=== PATIENT | female | born 1995 | race Caucasian/White ===

== ENCOUNTER 2019-04-02 11:39 | Emergency (ER) | payer MEDICAID ==
[~2019-04-02] VITALS: Ht 177.8 cm; Wt 70.3 kg
[2019-04-02 12:09] VITALS: BP_SYST 123
--- NOTE | 2019-04-02 13:07 | NUR ---
Patient to ER bed 04 to gown for evaluation. Side rails up.
--- NOTE | 2019-04-02 13:20 | NUR ---
SHABBIR Fernandes [employer]GER LOADER at bedside examining patient.
[2019-04-02] MEDS ORDERED: IPRATROPIUM/ALBUTEROL SULFATE 3 ML AMPUL.NEB (DUONEB) INH ONE (13:30)
--- NOTE | 2019-04-02 13:30 | NUR ---
pt arrives from home w/ c/o a producative cough x 4 weeks. pt has been taking over the counter meds w/out improvement
--- NOTE | 2019-04-02 13:55 | NUR ---
Patient given written and verbal discharge instructions and verbalizes understanding. ER MD discussed with patient the results and treatment provided. Patient in stable condition. ID arm band removed. Rx of albuterol, Macrobid, promethazine, Motrin, and Azithromycin given. Patient educated on pain management and to follow up with PMD. Pain Scale 3/10. Opportunity for questions provided and answered. Medication side effect fact sheet provided.
[2019-04-02 14:00] VITALS: BP_SYST 123
== END 2019-04-02 14:00 | disposition home or self-care (01) ==
LOC: SED 11:39
DX: J20.9 Acute bronchitis, unspecified (principal); N30.00 Acute cystitis without hematuria; R03.0 Elevated blood-pressure reading, without diagnosis of hypertension; Z88.2 Allergy status to sulfonamides
CPT/HCPCS: 81002; 94640; 99283; J7620